=== PATIENT | male | born 1965 | race Two or more races ===

== ENCOUNTER 2023-03-18 08:33 | Outpatient (CLI) | payer BC ==
--- NOTE | 2023-03-18 09:13 | SLEEP CARE CONSULTATION ---
Information from patient questionnaire entered by Shanika Knapp. I have reviewed and concur with the information entered by Shanika Knapp. This document represents the service I personally performed and the decisions made by me, Milagros South ARNP. History of Present Illness Service Date and Time: 03/18/2023 0833 Reason for Visit: New patient, sleep apnea on CPAP therapy Chief Complaint: reports: Other (Replace CPAP machine) Usual bedtime: 10 PM Time it takes to fall asleep: 15 minutes Snores at night: Yes Observed to quit breathing while asleep: Yes Number of times waking at night: 2 Reasons for waking at night: reports: Bathroom. denies: Choking, Gasping for air Toss, Turn, or Twitch while sleeping: No Recalls having dreams: No Usually gets out of bed at: 6 AM Feels refreshed in the morning: Yes Morning headache: No Sleepy or fatigued during the day: No Ever fallen asleep while driving: No Takes day naps: No Prior sleep studies: Yes Year and Where: 2015 [facility] Additional HPI information: WINSOME NEVES was previously diagnosed to have unknown, AHI unknown, sleep apnea-hypopnea syndrome and comes in today to establish care for CPAP therapy. He was diagnosed in [place] but the company went out of business and he does not have a copy of his sleep study. He thinks he had about 20 episodes an hour. - Parasomnia Symptoms Ever been unable to move upon waking from sleep: No Walks in sleep: No Talks in sleep: No Ever acted out dreams in sleep: No Ever felt weak in the knees when startled or emotional: No Bothered by creepy, crawly, restless sensations in legs: No Problems with memory or concentration: No CPAP Compliance Data - Data Reviewed with Patient Average duration of nightly device use: 7 hours 30 minutes Compliance rate %: 85 (160/180 days used; 09/19/2022-03/17/2023) Current pressure setting (cmH2O): 4-12 Average residual AHI: 1.7 Central apnea: 0.4 Obstructive apnea: 0.8 Average large leak: 1.4 L/min Compliance data discussion: He has a Resmed Airsens 10 that he received about 7 years ago. It has started making a loud noise when turned on. He has been buying his supplies online. He is using a nasal pillows mask, medium cushion. Subjective Patient concerns: denies: aerophagia, mask discomfort, air blowing in eyes, mask leak noise, condensation in mask/hose, nasal congestion, dry mouth, nose, throat, epistaxis Observed to snore while using device: No Current pressure setting perceived as: comfortable On therapy, patient: reports: sleeping better, awakening more refreshed, being more awake and alert during the day, more rested overall. denies: drowsiness while driving Initial [place] Sleepiness Scale score: 0 (03/18/2023) Past Medical History Past Medical History: reports: Hypothyroidism, Other (high cholesterol) Social History The patient's occupation is a RE. Patient is and lives in [place]. Have you smoked in the past 12 months: No Alcohol use: Yes Alcohol amount and frequency: 3 drinks, once a week Caffeine use: Yes Caffeine amount and frequency: 2 cups, daily Family History Family history of sleep disordered breathing: No Allergies and Home Medications Known drug allergies: No Drug allergies reviewed: Yes Home medication list reviewed: Yes Allergy and home medication list: Home Medications Medication Instructions Recorded Confirmed Last Taken Type Atorvastatin 10 mg ORAL DAILY 03/18/23 03/18/23 Unknown History Levothyroxine 0.05 mcg ORAL DAILY 03/18/23 03/18/23 Unknown History Review of Systems Weight gain over past 5 years: 15 Cardiovascular: denies: high blood pressure Gastrointestinal: denies: heartburn Neurological: denies: headaches Psychiatric: denies: anxiety, depression Ear/Nose/Throat: reports: tonsillectomy. denies: wisdom teeth removed Endocrine: reports: thyroid disease Musculoskeletal: reports: joint pain, neck pain, back pain Physical Exam Vital signs obtained and entered by: MILAGROS CURRY-Ruben Blood Pressure: 139/80 Cuff size: regular (left arm) Heart Rate: 65 O2 Saturation: 97 Height: 5 ft 10 in Weight: 249 lb 9.6 oz Body Mass Index: 35.8 BMI Classification: Obese Neck circumference: 18 Mouth and throat: narrow oropharynx Soft palate: long Hard palate: normal Uvula: normal Uvula visualization: 0% Mallampati Class IV Tongue: enlarged in size with teeth barreto on lateral edges Tonsils: absent bilaterally Heart: regular rate and rhythm Lungs: clear bilaterally Impression and Plan 1. Obstructive Sleep Apnea-Hypopnea Syndrome, unknown, with good treatment compliance and good apnea control. On CPAP therapy, the patient has better sleep quality and is more rested overall. He last updated his machine about 7 years ago. The patients CPAP is over 5 years old and of reasonable use. In addition, it is starting to make louder noise, a sign of malfunction. Thus, the CPAP will be updated. A DWO prescription will be made. Compliance guidelines for new device and follow up discussed. Patient's apnea severity and rationale for treatment to reduce apnea, improve sleep quality and reduce cardiovascular and cerebrovascular events was reviewed. * Continue auto CPAP pressure at 4-12 cmH2O * Update machine and supplies once we get a copy of sleep study or new PSG * PSG/HST to verify diagnosis and severity * Notify me if snoring with mask or feeling that the pressure is too much or too little * Call this office if any problems using CPAP * Return for follow up in [after sleep study], or sooner if concerns arise Counseling Topics: Spare mask, Weight loss health impact Plan: PSG if cannot get sleep study Visit Type: In Office Time Spent with Patient (minutes): 39 Provider Statement: I spent 100% of the Face to Face Visit with the patient with greater than 50% spent counseling the patient and coordination of care.
[2023-03-18 09:40] VITALS: BP 139/80; O2SAT 97
== END 2023-03-18 08:34 | disposition home or self-care (01) ==
LOC: SC 08:33
PROVIDERS: ATTEND Nurse Practitioner Family
DX: G47.33 Obstructive sleep apnea (adult) (pediatric) (principal); E66.9 Obesity, unspecified; Z68.35 Body mass index [BMI] 35.0-35.9, adult
CPT/HCPCS: 99203; 99212

== ENCOUNTER 2023-04-03 19:23 | Outpatient (CLI) | payer BC | END 2023-04-03 19:24 | disposition home or self-care (01) | LOC: SC 19:23 | PROVIDERS: ATTEND Nurse Practitioner Family | DX: G47.33 Obstructive sleep apnea (adult) (pediatric) (principal); G47.61 Periodic limb movement disorder | CPT/HCPCS: 95810 ==

== ENCOUNTER 2023-04-09 10:31 | Outpatient (CLI) | payer BC ==
--- NOTE | 2023-04-09 10:56 | Sleep Patient Instructions ---
Sleep Center Visit Summary - Patient Visit Information Reason for Visit: Sleep study follow-up - Patient Instructions Additional Instructions: You are being continued on CPAP therapy with pressure setting at 4-12 cmH2O. You will need to call the sleep care office to set up your follow up once you have your APAP machine and we will schedule a visit to check compliance and response to therapy at that time. You may call the office with any concerns about pressure feeling too low or too much for adjustment, if needed. You should contact DME supplier for any questions or concerns about mask or equipment. Please call office to schedule a follow up appointment in the sleep care office one month after obtaining new device. - Clinic Information Contact: [facility] [address] [place] [address] [email or web address] T: [phone]
--- NOTE | 2023-04-09 11:03 | SLEEP CARE CONSULTATION ---
Information from patient questionnaire entered by Shanika Knapp. I have reviewed and concur with the information entered by Shanika Knapp. This document represents the service I personally performed and the decisions made by , Milagros South ARNP. History of Present Illness Service Date and Time: 04/09/2023 1031 Initial [place] Sleepiness Scale score: 0 (03/18/2023) Current [place] Sleepiness Scale score: 0 (04/09/23) Additional HPI information: WINSOME NEVES returns for follow up and results of the recently performed polysomnography. The sleep study showed moderate obstructive sleep apnea with an average AHI of 18.2 and florencio oxygen saturation of 79%. He had moderate PLMs that did not contribute to sleep fragmentation. I explained the pathophysiology behind obstructive sleep apnea. We then spent quite a bit of time discussing different treatment options. For mild obstructive sleep apnea, surgery and oral appliance are alternatives to nasal CPAP therapy but in moderate or severe cases, nasal CPAP is the most effective and reliable treatment. The patient will continue with the nasal CPAP therapy set at 4-12 cmH20. His CPAP is making a loud noise and he needs a new CPAP. Patient was cautioned about risks of drowsy driving until sleepiness symptoms resolve. Sleep Study - Results Type of Sleep Study: Polysomnography (COMPLETED 04/03/23) Prior sleep studies: Yes Year and Where: 2015 [facility] Polysomnography/Home Sleep Study results: IMPRESSION: The quality of the study is good. The patient had normal sleep efficiency. The sleep architecture was abnormal for sleep fragmentation and reduced amount of time spent in slow wave sleep (N3). Respiratory monitoring showed moderate obstructive sleep apnea-hypopnea (AHI = 18.2) associated with frequent arousals, oxyhemoglobin desaturation and moderate hypoxia (florencio oxygen saturation of 79 %). The respiratory events occurred mainly during supine REM sleep (supine AHI = 22.8; non-supine = 5.40). Snore was light to loud in intensity. There was moderate periodic leg movement of sleep not contributing to the sleep fragmentation. Cardiac rhythm was normal sinus rhythm without significant arrhythmia. No abnormal behavior (parasomnia) observed during the night. Allergies and Home Medications Known drug allergies: No Drug allergies reviewed: Yes Home medication list reviewed: Yes (NO CHANGES) Review of Systems Review of systems same as previous: Yes (NO CHANGE) Physical Exam Vital signs obtained and entered by: SHANIKA Miranda MA Blood Pressure: 122/70 (LEFT ARM) Cuff size: regular Heart Rate: 72 O2 Saturation: 98 Height: 5 ft 10 in Weight: 244 lb 12.8 oz Body Mass Index: 35.1 BMI Classification: Obese Impression and Plan 1. Obstructive Sleep Apnea-Hypopnea Syndrome, moderate, with lowest oxygen saturation of 79%. On CPAP therapy, the patient has better sleep quality and is more rested overall. He needs a new CPAP since his is making a loud noise. He also needs a DME supplier. We were unable to get his last sleep study, so he completed another study. The patients CPAP is over 5 years old and of reasonabl e use. In addition, it is starting to make louder noise, a sign of malfunction. Thus, the CPAP will be updated. A DWO prescription will be made. Compliance guidelines for new device and follow up discussed. He would also like to change his mask for one that has the tubing connecting to the top of the head. I will add a mask refitting for him to be able to choose a different mask. Patient's apnea severity and rationale for treatment to reduce apnea, improve sleep quality and reduce cardiovascular and cerebrovascular events was reviewed. 2. Hypoxemia, moderate, with a florencio oxygen saturation of 79% and 10.6 minutes spent under 90%. The baseline oxygen saturation was normal with an average oxygen saturation of 90%. 3. Periodic limb movement, moderate, that did not fragment patients sleep. Periodic limb movement of sleep (PLMS) is characterized by episodes of repetitive limb movements that occur during sleep and usually involve the lower limbs. The etiology is unknown. Sleep hygiene methods can also improve sleep as well as lifestyle changes such as regular exercise. Patient was advised that no treatment is needed at this time. If symptoms increase, then further evaluation is indicated. 4. Obesity, unspecified. Currently patients BMI is 35.1. Obesity increases the risk of apnea, CPAP pressure requirements and overall health risks especially cardiovascular and diabetes. Thus patient is advised to lose weight. * Nasal auto CPAP therapy, pressure at 4-12 cm H2O * Transfer DME * Mask refitting for nasal cushion * Update supplies * Attempt to lose weight. * Return one month after CPAP obtained. I will assess response to therapy and compliance at that time. Counseling Topics: Weight loss health impact Prescriptions: Auto CPAP, Device supplies Visit Type: In Office Time Spent with Patient (minutes): 20 Provider Statement: I spent 100% of the Face to Face Visit with the patient with greater than 50% spent counseling the patient and coordination of care.
[2023-04-09 11:12] VITALS: BP 122/70; O2SAT 98
== END 2023-04-09 10:32 | disposition home or self-care (01) ==
LOC: SC 10:31
PROVIDERS: ATTEND Nurse Practitioner Family
DX: G47.33 Obstructive sleep apnea (adult) (pediatric) (principal); R09.02 Hypoxemia; G47.61 Periodic limb movement disorder; E66.9 Obesity, unspecified; Z68.35 Body mass index [BMI] 35.0-35.9, adult
CPT/HCPCS: 99212; 99213

== ENCOUNTER 2023-11-28 09:20 | Outpatient (CLI) | payer BC ==
--- NOTE | 2023-11-28 09:51 | Sleep Patient Instructions ---
Sleep Center Visit Summary - Patient Visit Information Reason for Visit: First compliance follow up with CPAP - Patient Instructions Additional Instructions: You were here for follow up of CPAP therapy. You will be continued on CPAP therapy with pressure at 4-12 cmH2O. You should follow up with sleep care in 12 months. You may contact us sooner for any questions or concerns. - Clinic Information Contact: [facility] [address] [place] [address] [email or web address] T: [phone]
--- NOTE | 2023-11-28 09:54 | SLEEP CARE CONSULTATION ---
Information from patient questionnaire entered by Shanika Knapp. I have reviewed and concur with the information entered by Shanika Knapp. This document represents the service I personally performed and the decisions made by , Milagros South ARNP. History of Present Illness Service Date and Time: 11/28/2023919 Previous diagnosis: Moderate, Obstructive Sleep Apnea-Hypopnea Syndrome AHI: 18.2 (04/03/23) Reason for follow up: first compliance Equipment type: CPAP (RESMED AIRSENSE 11 S/U 05/23/23) Equipment obtained from: Other ([facility]; getting supplies) Mask style: Nasal Backup mask available: Yes Last cushion change: today Prior sleep studies: Yes Year and Where: 2015 [facility] Type of Sleep Study: Polysomnography (COMPLETED 04/03/23) HPI additional information: WINSOME NEVES was diagnosed to have moderate, AHI 18.2, obstructive sleep apnea-hypopnea syndrome and returned today for CPAP therapy first compliance follow-up. Sleep Study - Results Type of Sleep Study: Polysomnography (COMPLETED 04/03/23) Prior sleep studies: Yes Year and Where: 2015 [facility] CPAP Compliance Data - Data Reviewed with Patient Average duration of nightly device use: 8 HRS 53 MINS Compliance rate %: 87 (05/23/23-06/21/23; 100% in last 30 days) Current pressure setting (cmH2O): 4-12 Average residual AHI: 1.6 Central apnea: 0.3 Obstructive apnea: 0.9 Hypopnea: 0.3 Average large leak: 0.4 L/min Subjective Patient concerns: denies: aerophagia, mask discomfort, air blowing in eyes, mask leak noise, condensation in mask/hose, nasal congestion, dry mouth, nose, throat, epistaxis Observed to snore while using device: No Current pressure setting perceived as: comfortable On therapy, patient: reports: sleeping better, awakening more refreshed, being more awake and alert during the day, more rested overall. denies: drowsiness while driving Initial [place] Sleepiness Scale score: 0 (03/18/2023) Current [place] Sleepiness Scale score: 0 Allergies and Home Medications Known drug allergies: No Drug allergies reviewed: Yes Home medication list reviewed: Yes (Atorvastatin) Allergy and home medication list: Allergies No Known Drug Allergies Allergy (Verified 11/26/23 09:08) Home Medications Medication Instructions Recorded Confirmed Last Taken Type Atorvastatin 10 mg ORAL DAILY 03/18/23 11/28/23 Unknown History Levothyroxine 0.05 mcg ORAL DAILY 03/18/23 11/28/23 Unknown History Review of Systems Review of systems same as previous: Yes (no changes) Physical Exam Vital signs obtained and entered by: MILAGROS CURRY-Ruben Blood Pressure: 134/93 Cuff size: long (right arm) Heart Rate: 65 O2 Saturation: 97 Height: 5 ft 10 in Weight: 248 lb 9.6 oz Body Mass Index: 35.6 BMI Classification: Obese Impression and Plan 1. Obstructive Sleep Apnea-Hypopnea Syndrome, moderate, with good treatment compliance and good apnea control. On CPAP therapy, the patient has better sleep quality and is more rested overall. He has been using his CPAP well with significant improvement of his sleep apnea. He has no issue or complaints with CPAP use. He intends to use his CPAP intermediate. We will follow up with him next year. Patient's apnea severity and rationale for treatment to reduce apnea, improve sleep quality and reduce cardiovascular and cerebrovascular events was reviewed. 2. Obesity, unspecified. Currently patients BMI is 35.6. Obesity increases the risk of apnea, CPAP pressure requirements and overall health risks especially cardiovascular and diabetes. Thus, patient is advised to lose weight. * Continue auto CPAP pressure at 4-12 cmH2O * Notify me if snoring with mask or feeling that the pressure is too much or too little * Attempt to lose weight * Call this office if any problems using CPAP * Return for follow up in 12 months, or sooner if concerns arise Counseling Topics: Spare mask, Weight loss health impact Follow up with Sleep Care in: 1 year Visit Type: In Office Time Spent with Patient (minutes): 15 Provider Statement: I spent 100% of the Face to Face Visit with the patient with greater than 50% spent counseling the patient and coordination of care.
[2023-11-28 10:03] VITALS: BP 134/93; O2SAT 97
== END 2023-11-28 09:21 | disposition home or self-care (01) ==
LOC: SC 09:20
PROVIDERS: ATTEND Nurse Practitioner Family
DX: G47.33 Obstructive sleep apnea (adult) (pediatric) (principal); E66.9 Obesity, unspecified; Z68.35 Body mass index [BMI] 35.0-35.9, adult
CPT/HCPCS: 99212